=== PATIENT | female | born 1945 | race Caucasian/White ===

== ENCOUNTER → 2020-07-22 | Outpatient (CLI) | payer BC, MEDICARE ==
[~2020-07-22] MED LIST: ETAN25DI INJ; HYDR25TA6 PO; LISI-170 PO
[2020-07-22 12:38] LABS: ALANINE AMINOTRANSFERASE 19 U/L (12-78); ALBUMIN 3.8 g/dL (3.4-5.0); ANION GAP 6 mmol/L (5-15); CALCIUM 9.6 mg/dL (8.5-10.1); CHLORIDE 103 mmol/L (98-107); CREATININE 0.87 mg/dL (0.55-1.02)
[2020-07-22 12:41] LABS: ALKALINE PHOSPHATASE 53 U/L (45-117); BILIRUBIN,TOTAL 1.2 mg/dL (0.2-1.0); TOTAL PROTEIN 7.6 g/dL (6.4-8.2)
== END | disposition home or self-care (01) ==
LOC: STAR 11:23
PROVIDERS: ATTEND Orthopaedic Surgery Hand Surgery
DX: Z01.812 Encounter for preprocedural laboratory examination (principal); Z20.822 Contact with and (suspected) exposure to COVID-19; G56.01 Carpal tunnel syndrome, right upper limb
CPT/HCPCS: 80053; 87635; 93005

== ENCOUNTER 2020-07-28 06:02 | Day surgery (SDC) | payer BC, MEDICARE ==
[~2020-07-28] VITALS: Ht 167.6 cm; Wt 77.0 kg
[2020-07-28] MEDS ORDERED: CHLORHEXIDINE 15 ML UDC MM STA (06:29)
[2020-07-28] MEDS ORDERED: LACTATED RINGERS 1,000 ML IV SCH (06:30)
[2020-07-28] MEDS ORDERED: FENTANYL PF 100 MCG/2ML ONE (07:22)
[2020-07-28] MEDS ORDERED: BUPIVACAINE/PF 0.5% ONE (07:35)
[2020-07-28] MEDS ORDERED: EPINEPHRINE 1 MG/ML, 1ML ONE (07:35)
[2020-07-28] MEDS ORDERED: LIDOCAINE-MPF 1%, 5ML ONE (07:35)
[2020-07-28] MEDS ORDERED: PROPOFOL 10 MG/ML, 20ML ONE (07:50)
[2020-07-28] MEDS ORDERED: FENTANYL PF 100 MCG/2ML IV PRN (08:00)
[2020-07-28] MEDS ORDERED: ACETAMINOPHEN 325 MG TABLET PO PRN (08:00)
== END 2020-07-28 09:10 | disposition home or self-care (01) ==
LOC: OUT 06:02
PROVIDERS: ATTEND Orthopaedic Surgery Hand Surgery
DX: G56.03 Carpal tunnel syndrome, bilateral upper limbs (principal); M06.9 Rheumatoid arthritis, unspecified; I10 Essential (primary) hypertension; Z79.1 Long term (current) use of non-steroidal anti-inflammatories (NSAID); Z79.891 Long term (current) use of opiate analgesic; Z79.899 Other long term (current) drug therapy; Z88.5 Allergy status to narcotic agent; Z98.890 Other specified postprocedural states
CPT/HCPCS: 29848; J0171; J2704; J3010; J7120